=== PATIENT | male | born 1940 | race Caucasian/White ===

== ENCOUNTER 2020-12-23 14:50 | Outpatient (CLI) | payer MEDICARE ==
--- OUTSIDE RECORDS SUMMARY | 2020-12-30 00:58 | EXTERNAL MEDICAL SUMMARY RPT | Continuity of Care Document ---
:1940 Demographics Phone Unavailable Preferred Language Unknown Marital Status Unknown Judaism Affiliation Unknown Race Unknown Ethnic Group Unknown Author Organization [facility] Address [address] [place] [address] Phone Problems date description facility [id number] Blurring vision ; Poss stroke [facility] Social History date description facility [id number]
== END 2020-12-23 14:51 | disposition critical access hospital (66) ==
LOC: EMS 14:50
PROVIDERS: ATTEND Emergency Medicine
DX: H53.2 Diplopia (principal); R11.0 Nausea
CPT/HCPCS: A0425; A0429

== ENCOUNTER 2020-12-23 15:24 | Emergency (ER) | payer MEDICARE ==
--- NOTE | 2020-12-23 15:35 | ED Physician Documentation ---
PD HPI FOCAL NEURO - Stated complaint Stated Complaint: DIZZY - Chief complaint Chief Complaint: Neuro - History obtained from History obtained from: Patient (At 11 AM this gentleman was reading and noticed something with his vision and when he looked up he noticed he had double vision. This was associated with transient nausea. He denies headache. He has a history of cataracts and a retinal problem. Also a cochlear implant on the left .) Review of Systems Ten Systems: 10 systems reviewed and negative Constitutional: reports: Reviewed and negative Nose: reports: Reviewed and negative Throat: reports: Reviewed and negative Cardiac: reports: Reviewed and negative PD PAST MEDICAL HISTORY - Present Medications Home Medications: Ambulatory Orders Medication Instructions Recorded Confirmed Cyanocobalamin [Vitamin B-12] 1,000 mg PO HS 12/23/20 12/23/20 DULoxetine [Cymbalta] 60 mg PO DAILY 12/23/20 12/23/20 Levothyroxine Sodium 274 mcg PO 12/23/20 12/23/20 [Levothyroxine] amLODIPine [Norvasc] 2.5 mg PO DAILY 12/23/20 12/23/20 - Allergies Allergies/Adverse Reactions: Allergies Allergy/AdvReac Type Severity Reaction Status Date / Time atorvastatin [From Lipitor] Allergy Unknown Verified 12/23/20 17:49 PD ED PE NORMAL - Vitals Vital signs reviewed: Yes - General General: Alert and oriented X 3, No acute distress - HEENT HEENT: Other (His left eye is covered with gauze, that makes him feel better. On removal, extraocular movements are clearly not symmetric. 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 ) - Neck Neck: Supple, no meningeal sign, No bony TTP - Cardiac Cardiac: RRR, No murmur - Respiratory Respiratory: No respiratory distress, Clear bilaterally - Abdomen Abdomen: Normal bowel sounds, Soft, Non tender - Back Back: No CVA TTP, No spinal TTP - Derm Derm: Normal color, Warm and dry - Neuro Neuro: Alert and oriented X 3, No motor deficit, No sensory deficit, Normal speech NIHSS - Time Time: 15:30 - Level of Consciousness Level of consciousness: (0) Alert, Keenly responsive LOC Questions: (0) Answers both Q's correct LOC Commands: (0) Performs both correctly - Gaze Best Gaze: (1) Partial gaze palsy - Visual Visual: (0) No loss - Facial Palsy Facial Palsy: (0) Normal, symmetrical movement - Motor Arms (both separate) Motor Arm (right): (0) No drift Motor Arm (left): (0) No drift - Motor Legs (both separate) Motor Leg (right): (0) No drift Motor Leg (left): (0) No drift - Limb Ataxia Limb Ataxia: (0) Absent - Sensory Sensory: (0) Normal - Best Language Best Language: (0) No aphasia - Dysarthria Dysarthria: (0) Normal - Extinction and Inattention (formally neg Extinction and inattention: (0) No abnormality - Total Score/Results Total Score/Result: 1 Results - Vitals Vitals: Vital Signs - 24 hr 12/23/20 12/23/20 12/23/20 15:27 15:32 17:32 Temperature 36.9 C 36.5 C 36.2 C L Heart Rate 68 60 63 Respiratory 20 16 12 Rate Blood Pressure 153/93 H 153/93 H 162/90 H O2 Saturation 99 94 94 Oxygen O2 Source Room air - EKG (time done) 1541 Rate: Rate (enter#) (55) Rhythm: NSR [place]: Normal Intervals: Prolonged AR QRS: Normal Ischemia: Non specific changes Computer interpretation: Agree with computer - Labs Labs: Laboratory Tests 12/23/20 12/23/20 12/23/20 15:35 15:35 15:35 WBC 12.5 H RBC 4.82 Hgb 15.7 Hct 46.6 MCV 96.7 H MCH 32.6 H MCHC 33.7 RDW 13.0 Plt Count 225 MPV 8.1 Neut # (Auto) 10.0 H Lymph # (Auto) 1.5 [place] # (Auto) 0.9 Eos # (Auto) 0.1 Baso # (Auto) 0.1 Absolute Nucleated RBC 0.00 Nucleated RBC % 0.0 PT 12.6 INR 1.1 Sodium 143 Potassium 3.6 Chloride 98 L Carbon Dioxide 22 Anion Gap 23.0 H BUN 17 Creatinine 1.1 Estimated GFR (MDRD) 64 L Glucose 157 H Calcium 10.1 Total Bilirubin 0.7 AST 29 ALT 21 Alkaline Phosphatase 71 Total Protein 7.2 Albumin 4.3 Globulin 2.9 Albumin/Globulin Ratio 1.5 - Rads (name of study) CTA Head and neck Radiology: EMP read contemporaneously (volume loss and small vessell ischemic change. mild, <50% B prox INCA stenosis, Mild emphysema) PD MEDICAL DECISION MAKING - ED course ED course: 80-year-old gentleman presents with acute symptoms which are likely due to an acute brainstem stroke. CT angiography of the head and neck are negative for large vessel occlusion or evidence of bleed. He was presenting outside the window for TPA. He has extensive records at the [facility] and that is wh ere his cochlear implant was placed so they were called for transfer and completion of the stroke work-up noting that we do not have an MRI. Spoke with the neurologist there, Dr. Martell who recommends aspirin and Plavix and this was ordered and defers to hospitalist there for admission. Subsequently accepted by Dr. Christian Simon to [facility] at 6:59 PM pending a bed, there may be a delay as they are fairly full. Departure - Departure Disposition: 02 Transfer Acute Care Hosp Clinical Impression: Cerebrovascular accident (CVA) Condition: Stable
[2020-12-23 15:45] LABS: BASOPHILS # (AUTO) 0.1 10^3/uL (0.0-0.1); BASOPHILS % (AUTO) 0.6 %; EOSINOPHILS # (AUTO) 0.1 10^3/uL (0.0-0.7); EOSINOPHILS % (AUTO) 0.9 %; HCT - HEMATOCRIT 46.6 % (42.0-52.0); HGB - HEMOGLOBIN 15.7 g/dL (14.0-18.0); LYMPHOCYTES # (AUTO) 1.5 10^3/uL (1.5-3.5); LYMPHOCYTES % (AUTO) 11.6 %; MEAN CORPUSCULAR HEMOGLOBIN 32.6 pg (27.0-31.0); MEAN CORPUSCULAR HGB CONC 33.7 g/dL (32.0-36.0); MEAN CORPUSCULAR VOLUME 96.7 fL (80.0-94.0); MEAN PLATELET VOLUME 8.1 fL (7.4-11.4); MONOCYTES # (AUTO) 0.9 10^3/uL (0.0-1.0); MONOCYTES % (AUTO) 7.2 %; NEUTROPHILS % (AUTO) 79.3 %; PLT - PLATELET COUNT 225 10^3/uL (130-450); RED BLOOD COUNT 4.82 10^6/uL (4.70-6.10); WHITE BLOOD COUNT 12.5 x10^3/uL (4.8-10.8)
[2020-12-23 15:54] LABS: INR 1.1 (0.8-1.2); PT - PROTHROMBIN TIME 12.6 secs (9.9-12.6)
[2020-12-23 15:56] LABS: ALBUMIN 4.3 g/dL (3.2-5.5); ALBUMIN/GLOBULIN RATIO 1.5 (1.0-2.2); BILIRUBIN,TOTAL 0.7 mg/dL (0.2-1.0); CALCIUM 10.1 mg/dL (8.5-10.3); CREATININE 1.1 mg/dL (0.6-1.2); POTASSIUM 3.6 mmol/L (3.5-5.0); TOTAL PROTEIN 7.2 g/dL (6.7-8.2)
[2020-12-23] MEDS ORDERED: IOVERSOL 320 100 ML VIAL IVP ONE ×2 (16:34→21:19)
--- NOTE | 2020-12-23 17:22 | CT Report ---
PROCEDURE: ANGIO NECK W INDICATIONS: stroke like symptoms CONTRAST: IV CONTRAST: Optiray 320 ml: 80 PO CONTRAST: *NO PO CONTRAST TECHNIQUE: After the administration of intravenous contrast, 1.5 mm axial sections acquired from the aortic arch to the [place] of [place]. Coronal 3-D maximum intensity projection (MIP) and/or volume rendering ref ormats were then performed. For radiation dose reduction, the following was used: automated exposur e control, adjustment of mA and/or kV according to patient size. COMPARISON: None. FINDINGS: Image quality: Excellent. Carotid system: The great vessels demonstrate a normal variant arch anatomy in which the left verteb ral artery arises as a separate vessel off the aortic arch as they arise from the aortic arch. The o rigins of the common carotid arteries appear patent. The common carotid arteries demonstrate normal calibers and courses. The bifurcation regions appear normal bilaterally. The internal carotid arter ies demonstrate normal caliber and course. There is mild bilateral proximal internal carotid artery s tenosis, less than 50%. Posterior circulation: The origins of the vertebral arteries appear patent. The more superior porti ons of the vertebral arteries demonstrate normal course and caliber. They join to form a normal appe aring basilar artery. Soft tissues: Visualized neck soft tissues demonstrate no suspicious abnormalities. The thyroid gla nd is normal in size. Mild centrilobular emphysema. Bones: No suspicious bony lesions. Visualized cervical spine appears normally aligned. IMPRESSION: 1. Mild bilateral proximal internal carotid artery stenotic disease, less than 50%. 2. Mild centrilobular emphysema. 3. Otherwise unremarkable CTA neck. Above discussed with Maury Tellez MD at the time of dictation on 12/23/2020 at 1724 hours. The estimate of stenosis included in the report of the imaging study was calculated using the NASCET method Reviewed by: Dylan Villela MD on 12/23/2020 5:20 PM PDT Approved by: Dylan Villela MD on 12/23/2020 5:20 PM PDT Station ID: [id number]
--- NOTE | 2020-12-23 17:24 | CT Report ---
PROCEDURE: ANGIO HEAD W/WO INDICATIONS: stroke like symptoms CONTRAST: IV CONTRAST: Optiray 320 ml: 80 PO CONTRAST: *NO PO CONTRAST TECHNIQUE: Precontrast 4.5 mm thick angled axial sections acquired from the foramen magnum to the vertex. Afte r the administration of intravenous contrast, 1 mm thick sections acquired through the [place] is. Postcontrast 4.5 mm thick sections then re-acquired from the foramen magnum to the vertex. 3-di mensional uppubmr-zaqifaxmk-hjalotnwap (MIP) and/or volume rendering reformats were acquired of the c entral intracranial vasculature. For radiation dose reduction, the following was used: automated ex posure control, adjustment of mA and/or kV according to patient size. COMPARISON: CTA neck from the same date FINDINGS: Image quality: Excellent. Anterior circulation: Intracranial internal carotid arteries are normal in size and flow. The flow within the paired anterior cerebral arteries is normal and symmetric. The flow within the middle cer ebral arteries is normal and symmetric. The anterior communicating artery is seen. No aneurysms are seen. Posterior circulation: Visualized portions of the vertebral arteries demonstrate normal caliber, and join to form a normal appearing basilar artery. Flow within the posterior cerebral arteries is norm al and symmetric. No aneurysms are seen. CSF spaces: Ventricles are normal in size and shape. Basal cisterns are patent. No extra-axial flu id collections. Brain: No midline shift. No intracranial bleeds or masses. Alan-white matter interface appears int act. Age-related volume loss and mild to moderate small vessel ischemic change. Skull and face: Calvarium and facial bones appear intact, without suspicious lesions. Remote left m astoidectomy. A device extends through the mastoidectomy defect in the region of the middle ear. Sinuses: Visualized sinuses and mastoids are clear. IMPRESSION: 1. Age-related volume loss and moderate small vessel ischemic change. 2. No evidence of acute stroke, hemorrhage, or mass. 3. Unremarkable CTA head. No evidence of stenosis, aneurysm, occlusion, or focal filling defect. Above discussed with ROBIN HERNANDEZ at the time of dictation on 12/23/2020 at 1724 hours.. Reviewed by: Dylan Villela MD on 12/23/2020 5:23 PM PDT Approved by: Dylan Villela MD on 12/23/2020 5:23 PM PDT Station ID: [id number]
[2020-12-23] MEDS ORDERED: CLOPIDOGREL 300 MG TABLET PO STA (18:53)
[2020-12-23] MEDS ORDERED: ASPIRIN CHEW 81 MG TABLET PO STA (18:53)
[2020-12-23 20:09] LABS: B. PARAPERTUSSIS- RESP PCR PAN NOT DETECTED; B. PERTUSSIS- RESP PCR PANEL NOT DETECTED; C. PNEUMONIAE- RESP PCR PANEL NOT DETECTED; CORONAVIRUS 229E-RESP PCR NOT DETECTED; CORONAVIRUS HKU1-RESP PCR NOT DETECTED; CORONAVIRUS NL63-RESP PCR NOT DETECTED; CORONAVIRUS OC43-RESP PCR NOT DETECTED; HUMAN METAPNEUMOVIRUS NOT DETECTED; INFLUENZA A- RESP PCR PANEL NOT DETECTED; INFLUENZA B - RESP PCR PANEL NOT DETECTED; M. PNEUMONIAE- RESP PCR PANEL NOT DETECTED; PARAINFLUENZA VIRUS 1 NOT DETECTED; PARAINFLUENZA VIRUS 2 NOT DETECTED; PARAINFLUENZA VIRUS 3 NOT DETECTED; PARAINFLUENZA VIRUS 4 NOT DETECTED; RHINOVIRUS/ENTEROVIRUS NOT DETECTED; RSV- RESP PCR PANEL NOT DETECTED; SARS-CoV-2 -RESP PCR PANEL NOT DETECTED
[2020-12-24] MEDS ORDERED: amLODIPine 5 MG TABLET PO STA (10:54)
[2020-12-24] MEDS ORDERED: LEVOTHYROXINE 112 MCG TABLET PO ONE (12:00)
[2020-12-24] MEDS ORDERED: LEVOTHYROXINE 25 MCG TABLET PO ONE (12:00)
[2020-12-24 15:41] VITALS: BP 129/92
--- OUTSIDE RECORDS SUMMARY | 2020-12-30 00:10 | EXTERNAL MEDICAL SUMMARY RPT | Continuity of Care Document ---
:1940 Demographics Phone Unavailable Preferred Language Unknown Marital Status Unknown Hinduism Affiliation Unknown Race Unknown Ethnic Group Unknown Author Organization [facility] Address [address] [place] [address] Phone Problems date description facility [id number] Blur[facility] vision ; Poss stroke [facility] Social History date description facility [id number]
== END 2020-12-24 15:35 | disposition short-term general hospital (02) ==
LOC: ED 15:24
DX: I63.9 Cerebral infarction, unspecified (principal); H53.2 Diplopia; R29.701 NIHSS score 1; I44.0 Atrioventricular block, first degree; J43.2 Centrilobular emphysema; Z20.822 Contact with and (suspected) exposure to COVID-19; Z96.21 Cochlear implant status; Z53.29 Procedure and treatment not carried out because of patient's decision for other reasons
CPT/HCPCS: 36415; 70496; 70498; 80053; 85025; 85610; 87631; 93005; 99284; A9270; Q9967; 0202U